=== PATIENT | male | born 1945 | race Caucasian/White ===

== ENCOUNTER 2020-09-19 08:14 | Emergency (ER) | payer MEDICARE ==
[~2020-09-19] VITALS: Ht 177.8 cm; Wt 99.8 kg
[~2020-09-19 08:14] MED LIST: AMLODIPINE BESYL5 MG PO; ASPIRIN EC81 MG PO; ATIVAN2 MG PO; BABY ASPIRIN81 MG PO; CEPHALEXIN500 MG PO; CIPRO500 MG PO; CLOPIDOGREL75 MG PO; COREG25 MG PO; HUMIRA40 MG/0.1 SUB-Q; KEFLEX500 MG PO; LISINOPRIL40 MG PO; LISINOPRIL5 MG PO; METOPROLOL TAR100 MG PO; NORCO 5-325 TA1 EACH PO; PYRIDIUM100 MG PO; SIMVASTATIN40 MG PO; SIMVASTATIN80 MG PO; TOPROL XL200 MG PO; VENLAFAXINE HC150 MG PO; ZYPREXA2.5 MG PO
--- OUTSIDE RECORDS SUMMARY | 2020-09-19 08:16 | XMS ---
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 Benedict has no Care Guidelines for this patient. Abdiaziz VISIT COUNT (12 MO.) 1 LYLE Bolden TOTAL 1 NOTE: Visits indicate total known visits. ED/C VISIT TRACKING (12 MO.) 09/19/2020 08:14 [facility] [place] TYPE: Emergency COMPLAINT: - SOB INPATIENT VISIT TRACKING (12 MO.) No inpatient visits to display in this time frame [email or web address]
[2020-09-19] MEDS ORDERED: VENLAFAXINE HCL75 M1 PO (08:20)
[2020-09-19] MEDS ORDERED: HYDROCHLOROTHIA25 MG PO (08:21)
[2020-09-19] MEDS ORDERED: SIMVASTATIN80 MG PO (08:22)
--- NOTE | 2020-09-19 17:46 | EKG ---
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
== END 2020-09-19 10:45 | disposition home or self-care (01) ==
LOC: ED 08:14
DX: J44.9 Chronic obstructive pulmonary disease, unspecified (principal); I10 Essential (primary) hypertension; I25.2 Old myocardial infarction; E78.00 Pure hypercholesterolemia, unspecified; Z87.891 Personal history of nicotine dependence; Z79.899 Other long term (current) drug therapy; Z79.82 Long term (current) use of aspirin; Z20.822 Contact with and (suspected) exposure to COVID-19
CPT/HCPCS: 71045; 80053; 83880; 84484; 85025; 93005; 93010; 94640; 94664; 99285-25; C9803; U0003

== ENCOUNTER 2022-08-19 08:28 | Emergency (ER) | payer MEDICARE ==
[~2022-08-19] VITALS: Ht 177.8 cm; Wt 99.8 kg
[~2022-08-19 08:28] MED LIST changes: +HYDROCHLOROTHIA25 MG PO; +VENLAFAXINE HCL75 M1 PO
[2022-08-19] MEDS ORDERED: AMOX TR-K CLV1 EAC1 PO (11:06)
--- NOTE | 2022-08-19 14:15 | EKG ---
[facility] [address] [facility] [place] [address] Signed Atrial fibrillation with a competing junctional pacemaker Cannot rule out Inferior infarct (cited on or before 10-MAY-2016) Abnormal ECG When compared with ECG of 19-SEP-2020 08:42, Atrial fibrillation has replaced Sinus rhythm Confirmed by DAI SNOWDEN MD ([id number]) on 08/19/2022 2:15:23 PM Electronically Signed By: DAI SNOWDEN MD 08/19/22 1415 PATIENT NAME: CHARITY TRISTAN CHARLENE Electrocardiogram DATE OF : 45 PHYSICIAN: DAI SNOWDEN MD REPORT #: [id number] REPORT IS CONFIDENTIAL AND NOT TO BE RELEASED WITHOUT AUTHORIZATION
== END 2022-08-19 11:20 | disposition home or self-care (01) ==
LOC: ED 08:28
DX: J18.9 Pneumonia, unspecified organism (principal); I25.2 Old myocardial infarction; I10 Essential (primary) hypertension; E78.00 Pure hypercholesterolemia, unspecified; Z20.822 Contact with and (suspected) exposure to COVID-19; Z79.899 Other long term (current) drug therapy; Z79.82 Long term (current) use of aspirin
CPT/HCPCS: 36415; 71045; 80053; 83735; 84484; 85025; 87502; 93005; 93010; 99285-25; U0003

== ENCOUNTER 2024-10-27 10:08 | Inpatient (IN) | payer MEDICARE ==
[~2024-10-27] VITALS: Ht 177.8 cm; Wt 110.0 kg
[2024-10-27] VITALS (14 sets, daily range): BP systolic 84–186; BP diastolic 49–170
[~2024-10-27 10:08] MED LIST changes: +ADULT ASPIRIN R81 MG PO; +AMOX TR-K CLV1 EAC1 PO; -ASPIRIN EC81 MG PO; +WARFARIN SODIUM5 MG PO
[2024-10-27] MEDS ORDERED: NOREPINEPHRINE BITARTRATE 250 ML IV SCH (10:30)
[2024-10-27] MEDS ORDERED: SODIUM CHLORIDE 0.9% 1,000 ML IV ONE ×3 (10:30→12:00)
[2024-10-27 10:43] LABS: BASOPHILS 0.2 % (0-2); HEMATOCRIT 45.8 % (35.0-50.0); HEMOGLOBIN 15.8 g/dL (12.0-18.0); LYMPHOCYTES 27.7 % (24-44); MCH 32.2 (27-36); MCHC 34.5 g/dl (30-36); MCV 93.5 fl (81-99); MONOCYTES 10.4 % (0-12); NEUTROPHILS 61.7 % (39-80); PLATELET COUNT 193 K/uL (140-440); RDW 14.7 (10.5-15.0)
[2024-10-27 11:00] LABS: PH, VENOUS 7.108 (7.31-7.41)
[2024-10-27 11:04] LABS: LACTIC ACID, BLOOD 1.1 mmol/L (0.4-2.0)
[2024-10-27 11:09] LABS: CORONAVIRUS COVID-19 AG NEGATIVE (NEGATIVE); INFLUENZA A AG NEGATIVE (NEGATIVE); INFLUENZA B AG NEGATIVE (NEGATIVE)
[2024-10-27 11:18] LABS: ALBUMIN 3.1 g/dL (3.4-5.0); ALBUMIN/GLOBULIN RATIO 0.84 (1.1-2.4); BILIRUBIN, TOTAL 0.2 mg/dL (0.2-1.0); BUN/CREATININE RATIO 18.86 (6.0-28.6); CALCIUM 7.5 mg/dL (8.5-10.1); CREATININE, SERUM 6.52 mg/dL (0.70-1.30); PROTEIN, TOTAL 6.8 g/dL (6.4-8.2)
[2024-10-27 11:40] LABS: ANION GAP 22.9 (7-21)
[2024-10-27 11:42] LABS: INR 3.75 (0.80-1.30); PROTIME 37.4 Sec (11.2-14.2)
[2024-10-27 11:42] LABS: POTASSIUM 6.9 mmol/L (3.5-5.1)
[2024-10-27] MEDS ORDERED: LIDOCAINE 2% VISCOUS 6 ML SYR TOP ONE (11:45)
[2024-10-27 11:46] LABS: BILIRUBIN, URINE NEGATIVE (negative); BLOOD/HGB, URINE TRACE-I (Negative); KETONE, URINE NEGATIVE (Negative); LEUK ESTERASE, URINE NEGATIVE (negative); NITRITE, URINE NEGATIVE (negative); PH, URINE 5.5 (5-7)
[2024-10-27 11:54] LABS: BACTERIA, URINE NONE SEEN /hpf (negative); CASTS, URINE HYALINE 1+ \\lpf; CRYSTALS, URINE NONE SEEN (0-1+); EPITHELIAL CELLS, URINE SQUAMOUS 1+ /lpf (0-1+)
--- NOTE | 2024-10-27 11:55 | EKG ---
[facility] [address] [facility] [place] [address] Signed Atrial fibrillation Low voltage QRS Nonspecific intraventricular conduction delay Abnormal ECG No previous ECGs available Confirmed by Maria G Louis MD ([id number]) on 10/27/2024 11:55:27 AM Electronically Signed By: MARIA G LOUIS MD 10/27/24 1155 PATIENT NAME: CHARITY TRISTAN Electrocardiogram DATE OF : 45 PHYSICIAN: MARIA G LOUIS MD REPORT #: [id number] REPORT IS CONFIDENTIAL AND NOT TO BE RELEASED WITHOUT AUTHORIZATION
[2024-10-27 11:56] LABS: COLLECTION TYPE, URINE CLEAN CATCH; REFLEX CULTURE, URINE No (No)
[2024-10-27] MEDS ORDERED: DEXTROSE 50% 50 ML SYR IV ONE (12:00)
[2024-10-27] MEDS ORDERED: SODIUM BICARBONATE 50 MEQ/50 ML SYR IV ONE (12:00)
[2024-10-27] MEDS ORDERED: CALCIUM CHLORIDE 1,000 MG/10 ML SYR IV ONE (12:00)
[2024-10-27] MEDS ORDERED: SODIUM ZIRCONIUM CYCLOSILICATE 10 GM PACK PO ONE (12:00)
[2024-10-27] MEDS ORDERED: ALBUTEROL SULFATE 0.5% 2.5 MG/0.5 ML VIAL INH ONE (12:00)
[2024-10-27] MEDS ORDERED: Insulin Regular, Human 100 UNIT/ML ML IV ONE (12:00)
[2024-10-27 13:36] LABS: ANION GAP 20.9 (7-21); BUN/CREATININE RATIO 20.13 (6.0-28.6); CALCIUM 8.2 mg/dL (8.5-10.1); CREATININE, SERUM 5.86 mg/dL (0.70-1.30); POTASSIUM 4.9 mmol/L (3.5-5.1)
[2024-10-27] MEDS ORDERED: PROCHLORPERAZINE EDISYLATE 10 MG/2 ML VIAL IV PRN (16:15)
[2024-10-27] MEDS ORDERED: LACTATED RINGER'S 1,000 ML IV SCH (16:15)
[2024-10-27] MEDS ORDERED: ACETAMINOPHEN 325 MG TAB PO PRN (16:15)
[2024-10-27] MEDS ORDERED: ondansetron HCL 4 MG/2 ML VIAL IV PRN (16:15)
--- NOTE | 2024-10-27 17:30 | NUR ---
PT ARRIVES TO FLOOR VIA STRETCHER BY ED RN - PT DROWSY BUT RESPONSIVE. SLIDER TRANSFER R/T PRFOUND WEAKNESS. 4L 02 VIA NC ON ARRIVAL, NO HOME O2 USE REPORTED BY PT OR FAMILY. AFIB RYTHEM ON POWERPLANT OPERATOR, RATES 60-70'S - PT STATES HE TOOK ALL HIS USUAL HOME MEDS INCLUDING RATE CONTROLS WHILE SICK AND MOST RECENTLY THIS AM. EQUAL STRENGTH BILATERALLY BUT WEAK, PT STATES WEAKNESS IS HIS BIGGEST COMPLAINT AT THIS TIME. DENIES PAIN ALTHOUGH HE APPEARS UNCOMFORTABLE IN BED. SKIN ASSESSMENT NEGATIVE OF ANY CONCERN FOR BREAKDOWN. GRANDSONS AT BEDSIDE REPORT PT IS VERY ACTIVE AND INDEPENDENT AT BASELINE AND WAS WORKING ON CARS 3 WEEKS AGO. IV SITES PATENT X2, LEVOPHED AT 7 MCG/MIN INTO 18G UPPER ARM IV SITE. VEGA CATH DRAINING BLOOD TINGED URINE, LIKELY FROM VEGA INSERT WITH ELARGED PROSTATE AND ELEVATED INR.
[2024-10-27] MEDS ORDERED: ALBUTEROL SULFATE 0.083% 3 ML VIAL INH PRN (17:45)
--- NOTE | 2024-10-27 18:23 | NUR ---
PT RESTING IN BED AND EATING PUDDING - ARMS SHAKY, GRANDSON STATES IS NOT BASELINE. SIPS OF WATER WITHOUT DIFFICULTY. LEVOPHED TITRATION DOWN IN PROGRESS.
[2024-10-27 18:42] LABS: PH, VENOUS 7.194 (7.31-7.41)
--- NOTE | 2024-10-27 18:50 | NUR ---
PT REPOSISTIONED TO RIGHT SIDE IN BED WITH PILLOWS PER REQUEST. BP CUFF ON LEFT ARM R/T IV SITE IN RIGHT UPPER ARM. MONITORING BP READINGS WITH CAUTION WHILE IN THIS POSISTION. CALL LIGHT IN REACH.
[2024-10-27 18:55] LABS: ANION GAP 24.4 (7-21); BUN/CREATININE RATIO 21.11 (6.0-28.6); CALCIUM 8.3 mg/dL (8.5-10.1); CREATININE, SERUM 5.21 mg/dL (0.70-1.30); POTASSIUM 5.4 mmol/L (3.5-5.1)
--- NOTE | 2024-10-27 19:30 | NUR ---
handoff report received from day shift rn. patient resting in bed with eyes closed. patient states he has no needs at this time. no distress noted. call light in reach
[2024-10-27] MEDS ORDERED: ALBUTEROL/IPRATROPIUM 3 ML NEB INH SCH (20:00)
[2024-10-27] MEDS ORDERED: LACTATED RINGER'S 1,000 ML IV ONE (20:15)
[2024-10-27] MEDS ORDERED: Calcium Gluconate in NS 1,000 MG/50 ML BAG IV ONE ×2 (20:15→23:45)
--- NOTE | 2024-10-27 20:40 | NUR ---
PATIENT ASSESSMENT COMPLETE. PATIENT ALERT AND ORIENTED X4. PATIENT DROWSY, BUT EASILY AWAKENS WITH VERBAL STIMULI. PATIENT DENIES ANY PAIN OR NAUSEA AT THIS TIME. LEVOPHED GTT INFUSING PER MEDICATION FLOW SHEET. IVF INFUSING PER EMAR. PATIENT IV SITES WNL. PATIENT VEGA INTACT. PATIENT ON 3L NC, SPO2 96%. PATIENT HAS OCCASIONAL LOOSE COUGH. PATIENT IN AFIB, HEART RATE 70-80'S. PATIENT VITAL SIGNS STABLE. PATIENT HAS NO NEEDS AT THIS TIME. CALL LIGHT IN REACH.
--- NOTE | 2024-10-27 20:47 | NUR ---
ADDED HUMIDIFICATION TO ISABELL'S NC. STARTED HIM ON A CORNET. ISABELL WAS ABLE TO COMPLETE THE CORNET LEVEL 5 W/O DIFFICULTY. ISABELL STATED THAT HE HAD A 40+ YEAR SMOKING HISTORY THAT HE QUIT IN 2000. HE SMOKED APPROXIMATELY 1 PACK A DAY.
[2024-10-27] MEDS ORDERED: MELATONIN 3 MG TAB PO PRN (21:00)
--- NOTE | 2024-10-27 21:30 | NUR ---
patient up to bedside commode with two person SBA. patient unsteady and weak on feet. patient passes gas, no BM. patient back to bed. warm blanket provided. castaneda care done. patient castaneda draining blood tinged urine. patient has no further needs at this time. call light in reach.
[2024-10-27 23:18] LABS: ANION GAP 21.2 (7-21); BUN/CREATININE RATIO 22.69 (6.0-28.6); CALCIUM 8.5 mg/dL (8.5-10.1); CREATININE, SERUM 4.45 mg/dL (0.70-1.30); POTASSIUM 5.2 mmol/L (3.5-5.1)
--- NOTE | 2024-10-27 23:20 | NUR ---
LEVOPHED GTT TITRATED UP PER MEDICATION FLOWSHEET TO MAINTAIN A MAP >65. PATIENT HAS IVF INFUSING PER EMAR. IV SITES WNL. PATIENT CONTINUES TO HAVE LOOSE COUGH. PATIENT REMAINS ON 3L NC, SPO2 95%. PATIENT HAS CALL LIGHT IN REACH.
--- NOTE | 2024-10-27 23:40 | NUR ---
SPOKE WITH DOCTOR PAIGE VIA PHONE. PROVIDED UPDATE. NEW ORDERS RECEIVED PER EMAR.
[2024-10-28] VITALS (49 sets, daily range): BP systolic 75–129; BP diastolic 45–115
--- NOTE | 2024-10-28 01:55 | NUR ---
LEVOPHED GTT TITRATED PER MEDICATION FLOW SHEET. PATIENT IVF INFUSING PER EMAR. IV SITES WNL. PATIENT REMAINS ON 3L NC, SPO2 97%. PATIENT REMAINS IN AFIB, HEART RATE 60-70'S. PATIENT VEGA CATH INTACT. PATIENT HAS NO NEEDS AT THIS TIME. CALL LIGHT IN REACH.
--- NOTE | 2024-10-28 02:44 | NUR ---
PATIENT RESTING IN BED WITH EYES CLOSED, RR 18. PATIENT REMAINS ON 3L NC, SPO2 96%. PATIENT REMAINS ON LEVOPHED GTT AT 2 MCG/MIN. VITAL SIGNS STABLE. NO DISTRES NOTED. CALL LIGHT IN REACH.
--- NOTE | 2024-10-28 04:30 | NUR ---
PATIENT USED CALL LIGHT STATING HE IS COLD. WARM BLANKET PROVIDED. PATIENT HAS NO FURTHER NEEDS AT THIS TIME. CALL LIGHT IN REACH.
[2024-10-28 05:21] LABS: BASOPHILS 0.2 % (0-2); EOSINOPHILS 0.1 % (0-6); HEMATOCRIT 42.7 % (35.0-50.0); HEMOGLOBIN 14.5 g/dL (12.0-18.0); LYMPHOCYTES 22.7 % (24-44); MCH 31.9 (27-36); MCHC 33.9 g/dl (30-36); MCV 93.9 fl (81-99); PLATELET COUNT 141 K/uL (140-440); RBC 4.55 M/ul (4.3-5.7); RDW 14.6 (10.5-15.0)
[2024-10-28 05:35] LABS: PROTIME 48.4 Sec (11.2-14.2)
[2024-10-28 05:38] LABS: INR 5.19 (0.80-1.30)
[2024-10-28 05:39] LABS: ALBUMIN 2.8 g/dL (3.4-5.0); ALBUMIN/GLOBULIN RATIO 0.76 (1.1-2.4); ANION GAP 18.1 (7-21); BILIRUBIN, TOTAL 0.3 mg/dL (0.2-1.0); BUN/CREATININE RATIO 23.11 (6.0-28.6); CALCIUM 8.4 mg/dL (8.5-10.1); CREATININE, SERUM 3.85 mg/dL (0.70-1.30); MAGNESIUM 1.8 mg/dL (1.8-2.4); PHOSPHORUS, INORGANIC 5.8 mg/dL (2.5-4.9); POTASSIUM 5.1 mmol/L (3.5-5.1); PROTEIN, TOTAL 6.5 g/dL (6.4-8.2)
--- NOTE | 2024-10-28 06:00 | NUR ---
SPOKE WITH DR PAIGE VIA PHONE AND PROVIDED UPDATE. NO NEW ORDERS AT THIS TIME.
--- NOTE | 2024-10-28 06:32 | NUR ---
PATIENT REMAINS ON LEVOPHED GTT AT 2 MCG/MIN. PATIENT ON 3L NC, SPO2 96%. PATIENT GIVEN NEB TX PER RT. PATIENT VEGA CATH INTACT, CONTINUES TO DRAIN RED/BLOOD TINGED URINE. VEGA CARE DONE. PATIENT IVF INFUSING PER EMAR. IV SITE WNL. MORE ICE WATER PROVIDED PER PATIENT REQUEST. PATIENT HAS NO FURTHER NEEDS AT THIS TIME. CALL LIGHT IN REACH.
--- NOTE | 2024-10-28 07:45 | NUR ---
PT REPOSISTIONED UP IN BED DURING BEDSIDE REPORT - PT AA0 X4, DOWSY AND C/O BEING "TIRED" BUT WAKES EASILY. LEVOPHED RUNNING INTO UPPER RIGHT IV SITE 18G, SITE WNL, RATE CURRENTLY AT 2MCG/MIN. PT DENIES NEEDS AT THIS TIME, CALL LIGHT IN REACH.
[2024-10-28 08:27] LABS: INFLUENZA B NAA NEGATIVE (NEGATIVE); RESPIRATORY SYNCYTIAL VIR NAA NEGATIVE (NEGATIVE)
--- NOTE | 2024-10-28 08:51 | NUR ---
0900 labs drawn from left hand iv site by this rn and sent to lab. pt resting in bed awake and watching tv, denies needs at this time.
[2024-10-28 08:52] LABS: PH, VENOUS 7.271 (7.31-7.41)
[2024-10-28] MEDS ORDERED: VENLAFAXINE HCL 75 MG CAPCR PO SCH (09:00)
[2024-10-28] MEDS ORDERED: OSELTAMIVIR PHOSPHATE 30 MG CAP PO SCH (09:00)
[2024-10-28] MEDS ORDERED: ASPIRIN 81 MG TABEC PO SCH (09:00)
[2024-10-28 09:30] LABS: BUN/CREATININE RATIO 24.53 (6.0-28.6); CALCIUM 8.4 mg/dL (8.5-10.1); CREATININE, SERUM 3.22 mg/dL (0.70-1.30)
--- NOTE | 2024-10-28 09:30 | NUR ---
PHYSICAL THERAPY IN ROOM TO WORK WITH PT
--- NOTE | 2024-10-28 10:33 | NUR ---
PT REPOSISTIONED TO LEFT SIDE WITH PILLOW. GRANDSON AT BEDSIDE AND UPDATED ON PT STATUS. PT APPEARS GENERALLY UNCOMFORTABLE IN BED BUT DENIES PAIN - STATES HE IS COMFORTABLE. FLUTTER VALVE USED, SECREATIONS AUDIBLE IN UPPER AIRWAY BUT PT UNABLE TO CLEAR.
--- NOTE | 2024-10-28 11:20 | NUR ---
RN ROUNDING ON PT - RESTING ON BED AND DOZING OFF AND ON BUT WITHOUT FULL SLEEP. GRANDSON AT BEDSIDE AND STATES HE IS WAKING WITH BP CUFF STARTING. PT BP STILL MARGINAL AND LEVOPHED AT 2MCG/MIN. TRIAL TO TURN IT OFF STARTED AT THIS TIME.
[2024-10-28] MEDS ORDERED: PHARMACY RENAL DOSE ADJUSTMENT 1 DOSE MISC PO SCH (12:00)
--- NOTE | 2024-10-28 12:30 | NUR ---
levophed infusion resumed after consequetive low bp with map <65. MD updated on potential need for central line - surgeon consulted.
[2024-10-28] MEDS ORDERED: PHYTONADIONE 2.5 MG/2.5 ML SYR PO ONE (13:00)
[2024-10-28 13:05] LABS: PH, VENOUS 7.33 (7.31-7.41)
[2024-10-28 13:21] LABS: ANION GAP 19.3 (7-21); BUN/CREATININE RATIO 27.17 (6.0-28.6); CALCIUM 8.5 mg/dL (8.5-10.1); CREATININE, SERUM 2.87 mg/dL (0.70-1.30); POTASSIUM 5.3 mmol/L (3.5-5.1)
--- NOTE | 2024-10-28 13:43 | NUR ---
PT CONTINUES TO REST IN BED, DROWSY BUT MORE ALERT WHEN CARES BEING DONE. LEVOPHED AT 5MCG/MIN. CENTRAL LINE PROCEDURE DELAYED AT THIS TIME R/T PTS INR. WILL ADMINISTER VITAMIN K AND REASSESS NEED IN AM. WILL CONTINUE TO ASSESS IV SITE CLOSELY WITH LEVOPHED INFUSION INTO 18G PERIPHERAL UPPER RIGHT ARM SITE. FAMILY UPDATED AT RN STATION ON PT PROGRESS. ALL QUESTIONS ANSWERED.
--- NOTE | 2024-10-28 14:09 | NUR ---
PT DENIES SOB, FLUTTER VALVE USED AND COUGH REMAINS NON PRODUCTIVE BUT LOOSE IN UPPER CHEST. PT DENIES NEEDING REPOSISTIONED, STATES HE IS COMFORTABLE. IV SITE PATENT AND WNL. VITAMIN K ADMINISTERED.
[2024-10-28] MEDS ORDERED: WARFARIN SOD HOLD 1 EA PO SCH (16:00)
[2024-10-28] MEDS ORDERED: WARFARIN PER PHARMACY PROTOCOL PO SCH (16:00)
--- NOTE | 2024-10-28 16:00 | NUR ---
PT ASSISTED UP TO BED SIDE CHAIR PIVOT TRANSFER. PT WEAK, MILDLY IMPULSIVE WITH MOVEMENT, NEEDING LINE/TUBE MANAGMENT/CUEING. PT MORE ALERT THIS AFTERNOON AND WATCHING TV, RECEIVING NEB TREATMENT. FLUTTER VALVE IN USE, CONTINUED EDUCATION REGARDING PULMONARY HYGEINE. PT STATES HE "THINKS" HE IS FEELING BETTER. URINE IN VEGA CATH REMAINS BRIGHT RED, OUTPUT HAS SLOWED BUT QS. LEVOPHED REMAINS AT 5MCG/MIN.
[2024-10-28 16:58] LABS: PH, VENOUS 7.227 (7.31-7.41)
--- NOTE | 2024-10-28 17:02 | NUR ---
PT EATING DINNER UP IN CHAIR - FIRST APPETITE SINCE ADMISSION. LAB IN ROOM TO DRAW 1700 LABS.
[2024-10-28 17:11] LABS: ANION GAP 16.7 (7-21); BUN/CREATININE RATIO 26.37 (6.0-28.6); CALCIUM 8.5 mg/dL (8.5-10.1); CREATININE, SERUM 2.54 mg/dL (0.70-1.30); POTASSIUM 4.7 mmol/L (3.5-5.1)
--- NOTE | 2024-10-28 18:00 | NUR ---
PT ASSISTED BACK TO BED A PIVOT TRANSFER. DYSPNEA ON EXCERTION NOTED, WITHOUT DESATURATION. PT ATE 75% OF DINNER AND DENIES NAUSEA. VEGA CARE COMPLETED. PT DENIES NEEDS AT THIS TIME, CALL LIGHT IN REACH.
--- NOTE | 2024-10-28 20:05 | NUR ---
DEEP SUCTIONED ISABELL VIA EACH NARE. BS WERE CLEAR POST SUCTIONING. ISABELL STATED THAT THE NT SUCTION WAS NOT COMFORTABLE BUT THAT HE CAN BREATH A LITTLE BETTER.
--- NOTE | 2024-10-28 20:20 | NUR ---
SHIFT REPORT RECEIVED. PATIENT RESTING IN BED. RT IN ROOM FOR NEB TREATMENT. PATIENT HAS AUDIBLE UPPDER AIRWAY SECREATIONS. PATIENT AGREED TO LET RT PERFORM NASOPHARYNGEAL SUCTION. PATIENT TOLERATED WELL AND UPPER AIRWAY SOUNDS ARE GREATLY REDUCED.
--- NOTE | 2024-10-28 21:00 | NUR ---
LAB IN FOR BLOOD DRAW. PATIENT PROVIDED PM MEDS FOR SLEEP AND GENERALIZED PAIN. PATIENT REPORTS FEELING TIRED BUT ADMITS HE HASN'T BEEN ABLE TO SLEEP WELL. PATIENT ORIENTED X4. LUNG SOUNDS ARE COARSE THROUGHOUT WITH SOME RHONCI IN RUL; RLL. PATIENT HAS CONGESTED COUGH. ABD SOFT; BOWEL SOUNDS ACTIVE. NO EDEMA NOTED. IV SITE IN RIGHT UPPER ARM IS WNL. REDNESS NOTED IN RIGHT AC FROM PRIOR IV SITE. VEGA CARE DONE. URINE IS DARK RED BUT THIN AND NO CLOTS. VEGA EMPTIED. PATIENT DENIED OTHER NEEDS. CALL LIGHT IN REACH.
[2024-10-28 21:06] LABS: PH, VENOUS 7.322 (7.31-7.41)
[2024-10-28 21:22] LABS: ANION GAP 15.4 (7-21); BUN/CREATININE RATIO 27.98 (6.0-28.6); CALCIUM 8.2 mg/dL (8.5-10.1); CREATININE, SERUM 2.18 mg/dL (0.70-1.30); POTASSIUM 4.4 mmol/L (3.5-5.1)
[2024-10-29] VITALS (25 sets, daily range): BP systolic 89–140; BP diastolic 48–89
--- NOTE | 2024-10-29 | NUR ---
PATIENT APPEARS TO BE RESTFUL IN BED. EYES CLOSED. SNORING NOTED. LUNG SOUNDS ARE COARSE THROUGHOUT. TOLERATING 3L NC. IV SITE WNL; TITRATED LEVO. SEE FLOWSHEET. URINE REMAINS DARK RED IN COLOR; NO CLOTS. LARGE QUANTITY OF OUTPUT NOTED. ALLOWED PATIENT TO REST. CALL LIGHT IN REACH.
--- NOTE | 2024-10-29 00:06 | NUR ---
DUE TO ISABELL'S FLU STATUS, RT IS ADDING 1MG PULMICORT FOR NO MORE THAN 7 DAYS (12 DOSES) TO HELP HIS FLU A+, COPD EXACERBATION LUNGS HEAL. ISABELL IS STILL REFUSING TO USE THE BIPAP, SO RT DISCONTINUED THE BIPAP ORDER. ISABELL DOES USE THE CORNET LEVEL 5 WITHOUT DIFFICULTY AND OFTEN WHEN HE IS AWAKE.
--- NOTE | 2024-10-29 00:35 | NUR ---
PATIENT BP ADEQUATE; TURNED OFF LEVO AT THIS TIME. PATIENT REMAINS RESTING WITH EYES CLOSED. CALL LIGHT IN REACH.
--- NOTE | 2024-10-29 01:45 | NUR ---
PATIENT RESTING WITH EYES CLOSED. VS STABLE. IV SITE WNL. IVF PER ORDER. PATIENT REMAINS OFF PRESSORS. CALL LIGHT IN REACH.
--- NOTE | 2024-10-29 02:26 | NUR ---
PATIENT REQUESTED A WARM BLANKET WHICH WAS PROVIDED. PATIENT REPORTS BEING COMFORTABLE. DENIED OTHER NEEDS. VS STABLE. TOLERATING 3L NC. CALL LIGHT IN REACH.
--- NOTE | 2024-10-29 03:36 | NUR ---
PATIENT ASSISTED TO REPOSITION IN BED. PATIENT DENIED ANY NEEDS OR CONERNS. CALL LIGHT IN REACH. VS STABLE.
[2024-10-29 05:24] LABS: BASOPHILS 0.1 % (0-2); EOSINOPHILS 0.2 % (0-6); HEMATOCRIT 38.1 % (35.0-50.0); HEMOGLOBIN 13.2 g/dL (12.0-18.0); MCH 32.1 (27-36); MCHC 34.6 g/dl (30-36); MCV 92.9 fl (81-99); MONOCYTES 13.4 % (0-12); NEUTROPHILS 62.3 % (39-80); PLATELET COUNT 114 K/uL (140-440); RBC 4.11 M/ul (4.3-5.7); RDW 14.4 (10.5-15.0)
[2024-10-29 05:33] LABS: INR 1.98 (0.80-1.30); PROTIME 22.5 Sec (11.2-14.2)
[2024-10-29 05:40] LABS: ALBUMIN 2.5 g/dL (3.4-5.0); ALBUMIN/GLOBULIN RATIO 0.78 (1.1-2.4); ANION GAP 14.6 (7-21); BILIRUBIN, TOTAL 0.8 mg/dL (0.2-1.0); BUN/CREATININE RATIO 29.11 (6.0-28.6); CALCIUM 8.1 mg/dL (8.5-10.1); CREATININE, SERUM 1.58 mg/dL (0.70-1.30); POTASSIUM 4.6 mmol/L (3.5-5.1); PROTEIN, TOTAL 5.7 g/dL (6.4-8.2)
--- NOTE | 2024-10-29 06:30 | NUR ---
PATIENT REPORTS FEELING ANXIOUS AND REQUEST "SOMETHING TO TAKE THE EDGE OFF". PATIENT DENIED FEELING SOB OR ANY PAIN. DISCUSSED WITH MD. VS STABLE.
--- NOTE | 2024-10-29 06:30 | NUR ---
PATIENT RESTING. EYES CLOSED. VS STABLE. CALL LIGHT IN REACH.
--- NOTE | 2024-10-29 06:47 | NUR ---
PATIENT UP TO THE CHAIR. TRANSFERED WITH 1PA AND FFW. PATIENT IS UNSTEADY AND WEAK. WARM BLANKET PROVIDED. JUICE PROVIDED PER REQUEST. PATIENT REPORTS FEELING LESS ANXIOUS ONCE UP IN CHAIR. LIGHTS ON. PATIENT DOES APPEAR SOB AFTER TRANSFER. REMAINS ON 3L NC. PATIENT RECOVERED AFTER SEVERAL MINS. IV FLUIDS CONTINUED; SITE WNL. FOLET EMPTIED; OUTPUT REMAINS RED WITH SOME CLOTS NOTED. PATIENT DENIED OTHER NEEDS. CALL LIGHT IN HAND.
[2024-10-29] MEDS ORDERED: Calcium Gluconate in NS 1,000 MG/50 ML BAG IV ONE (08:00)
[2024-10-29] MEDS ORDERED: ALBUTEROL/IPRATROPIUM 3 ML NEB INH SCH (08:00)
[2024-10-29] MEDS ORDERED: BUDESONIDE 0.5 MG/2 ML VIAL INH SCH (08:00)
[2024-10-29] MEDS ORDERED: MAGNESIUM SULFATE 2 GM/50 ML BAG IV SCH ×2 (08:00→21:45)
--- NOTE | 2024-10-29 08:00 | NUR ---
PT UP IN BED SIDE CHAIR - AWAKE AND ALERT UPON ENTRY TO ROOM. PT EXPRESSESS 8/10 ANXIETY THAT HE OTHERWISE IS UNABLE TO DESCRIBE. WHEN ASKED HE DENIES CHEST PAIN, NAUSEA, PALPITATIONS. NOTED TO HAVE 5 BEAT RUN OF VTACH ON MONITOR AT 0744 WITH THIS RN IN ROOM, PT DENIED FEELING ANY DIFFERENT AT MOMENT OF RUN. MORE FREQUENT PVC'S NOTED THIS AM WELL. MD NOTIFIED AND AT BEDSIDE TO ASSESS. PT HAS ACUTE COMPLAINT OF SEVERE PAIN IN LEFT GREAT TOE AREA, JOINT NOTED TO BE RED AND HOT TO TOUCH. PT DOES SUPPORT A HISTORY OF GOUT. UPDATED PLAN OF CARE DISCUSSED WITH MD.
[2024-10-29] MEDS ORDERED: OSELTAMIVIR PHOSPHATE 30 MG CAP PO SCH (09:00)
--- NOTE | 2024-10-29 09:00 | NUR ---
PT APPEARS TO BE MORE SOB WITH INCREASED RR WITHOUT CHANGE IN SPO2. USE OF FLUTTER VALVE BUT DOES NOT CLEAR SECREATIONS. PT DENIES WANTING BREAKFAST THIS AM, ORANGE JUICE PROVIDED. TYLENOL ADMINISTERED FOR PAIN. PT CONTINUES TO REPORT ANXIETY AND ASK FOR MEDICAITON. AWAITING ORDERS - MD AWARE. CALL LIGHT IN REACH.
[2024-10-29] MEDS ORDERED: allopurinoL 100 MG TAB PO SCH (09:09)
[2024-10-29] MEDS ORDERED: hydrOXYzine pamoate 25 MG CAP PO PRN (09:15)
--- NOTE | 2024-10-29 09:30 | NUR ---
CXR IN PROGRESS IN ROOM
--- NOTE | 2024-10-29 09:44 | NUR ---
NICOLA MCGRAW UPDATED IN ROOM ON PT STATUS - ALL QUESTIONS ANSWERED.
--- NOTE | 2024-10-29 10:14 | NUR ---
PT BACK TO BED WITH MAX ASSIST R/T PT UNABLE TO BEAR WEIGHT ON LEFT FOOT BECAUSE OF PAIN. SP02 STABLE ON 2L, RR ELEVATED IN 30'S WITH MOVEMENT, 22 AT REST. PRN FOR ANXIETY AND OTHER SCHEDULED MEDS ADMINISTERED. CURTAINS CLOSED AND LIGHTS OFF TO PROMOTE SLEEP AT THIS TIME. CXR RESULTS DISCUSSED WITH , NO FURTHER ORDERS AT THIS TIME. CALL LIGHT IN LAP.
--- NOTE | 2024-10-29 11:00 | NUR ---
PT RESTING IN BED AND VISUALIZED FROM WINDOW AWAKE IN BED WITH EYES OPEN. VS STABLE ON MONITOR. CALL LIGHT IN HAND.
[2024-10-29 11:37] LABS: PH, VENOUS 7.441 (7.31-7.41)
[2024-10-29 11:49] LABS: BUN/CREATININE RATIO 26.86 (6.0-28.6); CALCIUM 8.7 mg/dL (8.5-10.1); CREATININE, SERUM 1.34 mg/dL (0.70-1.30)
--- NOTE | 2024-10-29 12:04 | NUR ---
PT RESTING IN BED WITH HOB ELEVATED - EYES CLOSED, RR 22. CALL LIGHT IN REACH. 1200 ASSESSMENT DEFERED AT THIS TIME TO ALLOW REST.
--- NOTE | 2024-10-29 13:17 | NUR ---
PT RESTING IN BED WITH EYES CLOSED, RR EVEN AND UNLABORED. VS STABLE ON MONITOR. CARES HELD AT THIS TIME TO ALLOW REST. CALL PADDLE IN LAP.
--- NOTE | 2024-10-29 14:00 | NUR ---
PT REMAINS RESTING IN BED WITHOUT DISTRESS, EYES CLOSED AND VS STABLE ON MONITOR. CALL LIGHT PADDLE IN LAP.
--- NOTE | 2024-10-29 15:44 | NUR ---
DECREASED O2 TO 1 LPM.
--- NOTE | 2024-10-29 16:30 | NUR ---
PT WAKES EASILY FOR ASSESSMENT - HE STATES OVERALL HE FEELS BETTER THIS AFTERNOON THAN THIS AM. HE REPORTS HIS FOOT IS LESS PAINFUL. HE HAS BEEN RESTING MORE COMFORTABLY THROUGHOUT DAY AFTER [facility]IST[facility] THIS AM. APPETITE HOWEVER IS STILL POOR AND PT DENIES WANTING TO EAT DINNER. VS AND SPO2 STABLE ON 2L NC.
[2024-10-29] MEDS ORDERED: WARFARIN SOD 5 MG TAB PO ONE (17:15)
--- NOTE | 2024-10-29 18:45 | NUR ---
PT REPOSISTIONED TO RIGHT SIDE IN BED PER REQUEST. FLUTTER VALVE USED BUT NO MUCUS PRODUCED. COUGH AND BREATHING REMAINS WET AND CONGESTED IN THE UPPER CHEST. PT DENIES COMPLAINTS OTHERWISE. CALL LIGHT IN REACH.
--- NOTE | 2024-10-29 19:36 | NUR ---
ISABELL'S BS REMAIN COARSE AND CRACKLE LIKE. HE HAS NO DIFFICULTY WITH THE CORNET LEVEL 5. HE IS CURRENTLY ON A 1L NC W/HUMIDIFICATION. ISABELL REMAINS TACYPNEIC WITH HIS RR.
--- NOTE | 2024-10-29 20:15 | NUR ---
PATIENT RESTING IN BED. REPORTS BEING TIRED. AAOX4. PRN AND SCHEDULED MEDS PROVIDED. PATIENT REPORTS ONGOING ANXIETY AND THAT THE VISTARIL HELPS THIS MORNING. PATIENT DENIED FEELING SOB OR GI UPSET. UPPER AIRWAY CONGESTION NOTED; ENOCURAGED PATIENT TO COUGH SECREATIONS OUT. PATIENT HAS BEEN ABLE TO DO THIS MULTIPLE TIMES TODAY. LUNG SOUNDS ARE COARSE WITH RHONCI AND SOME CRACKLES IN THE RLL. PATIENT TOLERATING 1L NC. ABD IS SOFT, NON TENDER. LEFT GREAT TOE NOTED TO BE RED AND SWOLLEN. PATIENT REPORTS IT FEELS BETTER THEN IT DID THIS AFTERNOON BUT IS WOUND CARE RN. IV FLUIDS CONTINUE PER ORDER; SITE WNL. PATIENT PROVIDED MORE JUICE PER REQUEST. DENIED OTHER NEEDS. CALL LIGHT IN REACH. LIGHTS DIMMED.
[2024-10-29 20:57] LABS: ANION GAP 11.5 (7-21); BUN/CREATININE RATIO 22.31 (6.0-28.6); CALCIUM 8.3 mg/dL (8.5-10.1); CREATININE, SERUM 1.21 mg/dL (0.70-1.30); MAGNESIUM 1.6 mg/dL (1.8-2.4); POTASSIUM 4.5 mmol/L (3.5-5.1)
--- NOTE | 2024-10-29 22:00 | NUR ---
PATIENT REPORTS FEELING HOT. ROOM TEMP DECREASED AND BLANKETS REMOVED. PATIENT DOES FEEL WARM TO TOUCH. ORAL TEMP WNL. COOL WASH CLOTH APPLIED. PATIENT Sp02 86-88% ON 1L NC AT THIS TIME AND RR 25. TITRATED TO 3L NC AND REPLACED PULSE OX STICKER TO ASSURE ACCURATE READING. PATIENT DENIED OTHER NEEDS OR CONCERNS. IV MAG STARTED PER ORDER. IV SITE WNL.
--- NOTE | 2024-10-29 23:57 | NUR ---
PATIENT RESTING IN BED. REPORTS BEING COLD NOW. ORAL TEMP WNL. BLANKETS PROVIDED. PATIENT DENIED CONCERN. VS STABLE. IV SITE WNL; FLUIDS AND MAG REPLACEMENT PER ORDER. CALL LIGHT IN REACH.
[2024-10-30] VITALS (14 sets, daily range): BP systolic 83–125; BP diastolic 49–81
--- NOTE | 2024-10-30 02:00 | NUR ---
PATIENT RESTING IN BED. SNORE NOTED WITH UPPER ARIWAY CONGESTION. TOLERATING 3L NC. VS STABLE. IV SITE WNL; FLUIDS PER ORDER.
--- NOTE | 2024-10-30 04:00 | NUR ---
PATIENT RESTING. EYES CLOSED. VS STABLE. ALLOWED PATIENT TO REST. CALL LIGHT IN REACH.
--- NOTE | 2024-10-30 05:15 | NUR ---
PATIENT TOLERATING 3L NC. LUNG SOUNDS COARSE WITH RHONCI THROUGHOUT. IV FLUIDS PER ORDER; SITE WNL. VEGA EMPTIED; URINE HAS SLIGHT BLOOD TINGE; ORANGE/YELLOW IN COLOR AND SOME SEDIMENT. PATIENT RESTING WITH EYES CLOSED AND SNORING. ALLOWED PATIENT TO REST. CALL LIGHT IN REACH.
[2024-10-30 05:27] LABS: PH, VENOUS 7.437 (7.31-7.41)
[2024-10-30 05:29] LABS: BASOPHILS 0.2 % (0-2); EOSINOPHILS 0.3 % (0-6); HEMATOCRIT 38.3 % (35.0-50.0); LYMPHOCYTES 23.5 % (24-44); MCH 31.7 (27-36); MCHC 33.9 g/dl (30-36); MCV 93.6 fl (81-99); MONOCYTES 12.8 % (0-12); NEUTROPHILS 63.2 % (39-80); PLATELET COUNT 120 K/uL (140-440); RDW 14.2 (10.5-15.0)
[2024-10-30 05:44] LABS: ALBUMIN 2.4 g/dL (3.4-5.0); ALBUMIN/GLOBULIN RATIO 0.71 (1.1-2.4); ANION GAP 11.7 (7-21); BILIRUBIN, TOTAL 0.8 mg/dL (0.2-1.0); BUN/CREATININE RATIO 21.69 (6.0-28.6); CALCIUM 8.4 mg/dL (8.5-10.1); CREATININE, SERUM 1.06 mg/dL (0.70-1.30); POTASSIUM 4.7 mmol/L (3.5-5.1); PROTEIN, TOTAL 5.8 g/dL (6.4-8.2)
[2024-10-30 05:53] LABS: INR 1.41 (0.80-1.30); PROTIME 17.2 Sec (11.2-14.2)
--- NOTE | 2024-10-30 08:30 | NUR ---
PT ASSISTED UP TO BED, PIVOT TRANSFER, SIDE CHAIR TO EAT BREAKFAST - STILL UNSTABLE ON FEET AND PAIN IN LEFT GREAT TOE IS HINDERENCE TO WEIGHT BEARING. DYSPNEA WITH EXCERTION, RR 30, WITHOUT DESATURATION.INCREASED APPETITE THIS AM, EATING BREAKFAST. PT ALSO DRINIKING ENSURE. PT REPORTS PAIN 8/10 AT LEFT GREAT TOE BUT NO WHERE ELSE. DENIES NAUSEA. VEGA CATH DRAINING DARK RED URINE, BLOOD IN TUBING LINE REMAINS. MD IN ROOM ROUNDING - RN PRESENT. UPDATED POC DISCUSSED - PT STATES UNDERSTANDING AND ALL QUESTIONS ANSWERED.
[2024-10-30] MEDS ORDERED: OSELTAMIVIR PHOSPHATE 75 MG CAP PO SCH (09:00)
--- NOTE | 2024-10-30 09:04 | NUR ---
UR CLINICAL REVIEW: 2 MN FOR VERSALUS- PER ROTARY SOIL STABILIZER OPERATOR MEETS INPT FOR DOTTIE/METABOLIC ACIDOSIS MEDICARE INPT 10/27/24 @ 1617 ORDER MATCHES REG NO AUTH REQUIRED PER MEDICARE GUIDELINES DISCHARGE TO HOME WHEN STABLE
[2024-10-30] MEDS ORDERED: allopurinoL 100 MG TAB PO SCH (09:05)
[2024-10-30] MEDS ORDERED: guaiFENesin 600 MG TABCR PO PRN (09:15)
--- NOTE | 2024-10-30 09:15 | NUR ---
PT USES CALL LIGHT TO REQUEST BED SIDE COMMODE FOR BM. PT ASSISTED UP BY PHYSICAL THERPAY AND OCCUPATIONAL THERAPY. SMALL FORMED BM. THERAPY EVAL CONDUCTED. PT DYSPNIC WITH MOVEMENT, ABLE TO SLOW BREATHING WHEN PROMPTED. PO FLUID INTAKE IMPROVED.
--- NOTE | 2024-10-30 10:28 | NUR ---
DAUGHTER IN ROOM TO VISIT - PT IN GREAT SPIRITS VISITING. DAUGHTER UPDATED ON STATUS AND CURRENT PLAN OF CARE. ALL QUESTIONS ANSWERED.
--- NOTE | 2024-10-30 11:02 | NUR ---
ALERT AND ORIENTED WITH OXYGEN IN PLACE, UP IN RECLINER. PATIENT LIVES IN HOUSE WITH . HAS 1 STEP TO GET INTO LIVINGROOM. DOES HAVE 2 STORIES TO HOUSE BUT HE DOES NOT GO UPSTAIRS. HAS NO DME. STATES HE MAY NEED A WALKER. DISCUSSED [facility]. AT THIS POINT IS THINKING HE WILL GET WALKER AT [facility]. WILL REVISIT THIS SUBJECT DURING HIS STAY. PATIENT DRIVES AT BASELINE. HE DENIES ANY FINANCIAL DIFFICULTY. ABLE TO PAY UTILITIES AND OBTAIN FOOD AND MEDICATIONS WITH NO ISSUES. DISCUSSED OXYGEN. DOES NOT USE THIS AT HOME. HIS HAS [employer] BUT HE CAN NOT REMEMBER WHICH COMPANY. DENIES OTHER NEEDS AT THIS TIME.
--- NOTE | 2024-10-30 11:30 | NUR ---
RN ROUNDING ON PT - RESTING IN CHAIR ALERT AND WATCHING TV, IMPROVED APPEARANCE OVERALL. CONTINUES TO USE FLUTTER VALVE AND COUGH IS NOW MORE PRODUCTIVE. PT DENIES WANTING TO EAT LUNCH, ORANGE JUICE PROVIDED PER REQUEST. CALL LIGHT IN REACH.
--- NOTE | 2024-10-30 15:25 | NUR ---
PT RESTING IN CHAIR WATCHING TV. PT DENIES NEEDS. VS STABLE ON MONITOR. CALL LIGHT IN LAP.
[2024-10-30] MEDS ORDERED: WARFARIN SOD 5 MG TAB PO SCH (16:00)
--- NOTE | 2024-10-30 18:24 | NUR ---
PT PROVIDED BED BATH IN CHAIR THIS EVENING AFTER DINNER. PTS APPETITE IMPROVED AT DINNER. PO FLUID INTAKE IMPROVING. PT STILL DYSPNIC WITH ANY ACTIVITY, ON 2L MOST OF DAY. LEFT FOOT REMAINS PAINFUL, DIFFICULT TO STAND ON DURING BATH EVEN WITH WALKER. PT DENIES FEELING NEED TO VOID YET POST VEGA DC. PTS FAMILY IN TO VISIT AND PT IN GOOD SPIRITS. REMAINS UP IN CHAIR THIS EVENING PER REQUEST. CALL LIGHT IN REACH.
--- NOTE | 2024-10-30 19:45 | NUR ---
handoff report received from day shift RN. patient resting in bed with eyes closed, respirations even and unlabored. vital signs stable. no distress noted. call light in reach.
--- NOTE | 2024-10-30 20:50 | NUR ---
patient resting in bed, awakens when this RN enters room. patient alert and oriented x4. patient on 2L NC, tolerating well. patient denies feeling SOB. patient noted to have upper airway congestion, patient able to cough and clear. patient lung sounds coarse througout. patient in chronic afib, heart rate 80-100's. vital signs stable. patient denies any GI upset. patient castaneda taken out today, patient has yet to void, denies feeling need to void. patient endores feeling anxious, and states the vistaril helped him this morning. PRN vistaril given per emar. patient left greater toe remains reddened and swollen, tender to touch. patient endorses pain in this area, PRN tylenol given per emar. patient IVF infusing per emar, IV site WNL. patient provided with juice per request. no further needs at this time. call light in reach.
--- NOTE | 2024-10-30 21:47 | NUR ---
patient bladder scanned for 301ml
--- NOTE | 2024-10-30 22:10 | NUR ---
SPOKE WITH DOCTOR PAIGE VIA PHONE. PROVIDED WITH UPDATE HOW PATIENT HAS NOT YET VOIDED AFTER VEGA DC, AND BLADDER SCAN OF 301ML. NEW ORDER RECEIVED VIA EMAR.
[2024-10-30] MEDS ORDERED: TAMSULOSIN HCL 0.4 MG CAP PO ONE (22:15)
--- NOTE | 2024-10-30 23:30 | NUR ---
patient resting in bed with eyes closed, respirations even and unlabored. patient remains on 2L NC, SPO2 92%. patient has no needs at this time. call light in reach.
[2024-10-31] VITALS (16 sets, daily range): BP systolic 93–149; BP diastolic 59–79
--- NOTE | 2024-10-31 02:15 | NUR ---
PATIENT REPOSITIONED IN BED AND STATES HE IS COMFORTABLE AT THIS TIME. PATIENT REMAINS ON 2L NC, SPO2 93%. PATIENT VITAL SIGNS STABLE. PATIENT UPDATED ON PLAN OF CARE FOR THE MORNING. PATIENT HAS NO NEEDS AT THIS TIME. CALL LIGHT IN REACH.
--- NOTE | 2024-10-31 04:19 | NUR ---
PATIENT USES CALL LIGHT STATING HE FEELS LIKE HE NEEDS TO VOID. PATIENT ASSISTED WITH URINAL, VOIDS 100CC OF BROWN COLORED URINE. PATIENT DENIES PAIN WITH URINATION. PATIENT ENDORSES HEADACHE, PRN TYLENOL GIVEN PER EMAR. PATIENT HAS NO FURTHER NEEDS AT THIS TIME. CALL LIGHT IN REACH.
--- NOTE | 2024-10-31 05:00 | NUR ---
PATIENT USED CALL LIGHT STATING HE NEEDS TO VOID. PATIENT ASSISTED WITH URINAL, VOIDS 50CC. PATIENT DENIES ANY PAIN OR DISCOMFORT WITH URINATION. PATIENT PROVIDED WITH FRESH ICE WATER. NO FURTHER NEEDS AT THIS TIME. CALL LIGHT IN REACH.
[2024-10-31 05:26] LABS: PH, VENOUS 7.494 (7.31-7.41)
[2024-10-31 05:28] LABS: BASOPHILS 0.2 % (0-2); EOSINOPHILS 0.5 % (0-6); LYMPHOCYTES 20.9 % (24-44); MCHC 34.4 g/dl (30-36); MONOCYTES 15.1 % (0-12); NEUTROPHILS 63.3 % (39-80); PLATELET COUNT 116 K/uL (140-440); RBC 3.76 M/ul (4.3-5.7); RDW 14.4 (10.5-15.0)
[2024-10-31 05:44] LABS: ALBUMIN 2.3 g/dL (3.4-5.0); ALBUMIN/GLOBULIN RATIO 0.66 (1.1-2.4); ANION GAP 11.4 (7-21); BUN/CREATININE RATIO 17.58 (6.0-28.6); CREATININE, SERUM 0.91 mg/dL (0.70-1.30); MAGNESIUM 1.5 mg/dL (1.8-2.4); POTASSIUM 4.4 mmol/L (3.5-5.1); PROTEIN, TOTAL 5.8 g/dL (6.4-8.2)
--- NOTE | 2024-10-31 06:06 | NUR ---
PATIENT RIGHT AC IV NOTED TO BE LEAKING. IV TAKEN OUT, TIP INTACT. SITE COVERED WITH GAUZE AND COBAND. PATIENT TOLERATED WELL. NEW 20G IV STARTED IN PATIENT LEFT WRIST. PATIENT TOLERATED WELL. SITE SALINE LOCKED. NO FURTHER NEEDS AT THIS TIME. CALL LIGHT IN REACH.
--- NOTE | 2024-10-31 06:32 | NUR ---
PATIENT USED CALL LIGHT REQUESTING TO GET UP TO COMMODE. PATIENT USED FWW AND X1 SBA. PATIENT HAS SMALL BM AND VOIDS 200CC. PATIENT AMBULATES BACK TO BED. PATIENT STATES HIS LEFT FOOT FEELS BETTER AND IS NOT PAINFUL IT WAS. PATIENT LINEN CHANGED. PATIENT REMAINS ON 2L NC, TOLERATING WELL. PATIENT VITAL SIGNS STABLE. PATIENT HAS NO FURTHER NEEDS AT THIS TIME. CALL LIGHT IN REACH.
[2024-10-31] MEDS ORDERED: MAGNESIUM SULFATE 2 GM/50 ML BAG IV SCH (08:00)
--- NOTE | 2024-10-31 08:15 | NUR ---
Call light answered, patient requests assistance with urinal, 300 dark ro urine out. Up to chair, breakfast tray delivered. Pt states "feeling better" today, has no needs at this time, made plan for day, pt agreeable.
[2024-10-31] MEDS ORDERED: TAMSULOSIN HCL 0.4 MG CAP PO SCH (09:00)
--- NOTE | 2024-10-31 09:00 | NUR ---
Scheduled medications administered and assessment complete. Pt on 1L NC O2 at this time s/p neb tx. VSS. Pt has loose cough with thick mucus noted, PRN mucinex administered. Afebrile, rate controlled in Afib, BP stable. Lungs coarse in upper, dim in bases. Bowel tones active. Pt reports gout to L leg improved- warm, pink, within drawn outline. Pt feels to be improving. No further needs at this time, call light in reach.
--- NOTE | 2024-10-31 10:05 | NUR ---
IV mag infusing. Pt sitting up to chair watching tv. Adjusted BP cuff as patient was holding arm above head. No further needs at this time
--- NOTE | 2024-10-31 10:19 | NUR ---
PATIENT ALERT AND ORIENTED IN RECLINER. DISCUSSED WALKER. STATES HE DOES NOT WANT ASSISTANCE IN OBTAINING A WALKER. STATES HE WILL GET ONE [facility] [place] INFORMED OF [employer] AND GIVEN OPTION TO ORDER WALKER FROM DME. DENIES OPTIONS FOR WALKER, WILL GET ONE FOR HIS SELF. STATES HE HAS NO OTHER CM NEEDS AT THIS TIME. WILL CONTINUE TO CHECK IN WITH PATIENT WHILE HE IS IN FACILITY
--- NOTE | 2024-10-31 11:00 | NUR ---
Pt up to BR with FWW for medium BM and 500ml void- continues to be ro colored, no julee red blood noted. Pt tolerates activity fairly well requiring 1L O2 throughout to maintain sat >90%. Pt using flutter valve. No further needs
--- NOTE | 2024-10-31 12:15 | NUR ---
In room for assessment/vitals, lunch tray delivered. Pt remains afebrile with VSS. Reports no needs at this time.
[2024-10-31 13:18] LABS: INR 1.76 (0.80-1.30); PROTIME 20.5 Sec (11.2-14.2)
--- NOTE | 2024-10-31 13:30 | NUR ---
RT in room, titrates pt to RA, updated regarding activity tolerance and o2 use, RT agreeable to POC
[2024-10-31] MEDS ORDERED: ALBUTEROL/IPRATROPIUM 3 ML NEB INH SCH (14:00)
[2024-10-31] MEDS ORDERED: WARFARIN SOD 5 MG TAB PO SCH (16:00)
--- NOTE | 2024-10-31 18:32 | NUR ---
PATIENT TO MED SURG ROOM 123 AT 1830. PATIENT IS ON ROOM AIR 91%. VSS
--- NOTE | 2024-10-31 19:31 | NUR ---
REPORT RECEIVED FROM DAY SHIFT RN. PATIENT RESTING IN CHAIR. DENIES NEEDS AT THIS TIME. CALL LIGHT IN REACH.
[2024-10-31] MEDS ORDERED: BENZONATATE 100 MG CAP PO PRN (20:00)
[2024-10-31] MEDS ORDERED: BUDESONIDE 0.5 MG/2 ML VIAL INH SCH (20:00)
--- NOTE | 2024-10-31 20:42 | NUR ---
PATIENT RESTING IN BED. VS AND I&Os OBTAINED AND RECORDED. PATIENT TRANSFERRED FROM CHAIR TO BED USING MINIMAL SBA AND FWW. PATIENT ZULLY WELL. ASSESSMENT COMPLETE. IVs FLUSHED WNL. PATIENT ON 1L NC WHILE AMBULATING. PATIENT REMAINS ON 1L NC FOR SLEEP. CPOX IN PLACE. SCHEDULED AND PRN MEDICATION ADMINISTERED. PATIENT EDUCATED TO ROOM AND CALL LIGHT. PATIENT VERBALIZES UNDERSTANDING. BED ALARM ON. CALL LIGHT IN REACH.
--- NOTE | 2024-10-31 22:47 | NUR ---
PATIENT RESTING IN BED ON RIGHT SIDE WITH EYES CLOSED. RESPIRATIONS EVEN AND UNLABORED. CALL LIGHT IN REACH.
[2024-11-01] VITALS (7 sets, daily range): BP systolic 118–143; BP diastolic 64–71
--- NOTE | 2024-11-01 00:04 | NUR ---
PATIENT RESTING ON RIGHT SIDE IN BED WITH EYES CLOSED RESPIRATIONS EVEN AND UNLABORED. CPOX REMAINS IN PLACE. NO NEEDS IDENTIFIED, CALL LIGHT WITHIN REACH.
--- NOTE | 2024-11-01 01:06 | NUR ---
PRN MEDICATION ADMINISTERED TO PATIENT PER REQUEST FOR COUGH. ASSISTED UP TO RESTROOM WITH MINIMAL SBA AND USE OF FWW. RETURNED TO BED WITHOUT DIFFICULTY, NEW GOWN PROVIDED. 1L NC REMAINS IN PLACE, IV FLUIDS INFUSING PER ORDER. NO FURTHER NEEDS IDENTIFIED, CALL LIGHT WITHIN REACH.
--- NOTE | 2024-11-01 02:20 | NUR ---
PATIENT RESTING IN BED ON RIGHT SIDE WITH EYES CLOSED. RESPITATIONS EVEN AND UNLABORED. IV FLUIDS CONTINUING TO INFUSE PER NOV. 1L NC REMAINS IN PLACE, CPOX MONITOR IN PLACE. NO NEEDS IDENTIFIED, CALL LIGHT WITHIN REACH.
--- NOTE | 2024-11-01 04:02 | NUR ---
BED ALARM SOUNDING. pt REPOSITIONING SELF IN BED. SBA WITH FWW TO RESTROOM FOR VOID AND BM. UP TO CHAIR PER pt REQUEST. CHAIR ALARM IN PLACE. IV SITE FLUSHED WNL. IVF INFUSING ORDERED. PERSONAL SUPPLIES IN REACH. CALL LIGHT WITH pt. ICE WATER REFILLED. NO ADDITIONAL REQUESTS. 1L OXYGEN BY NC IN PLACE, SPO2 WNL.
--- NOTE | 2024-11-01 04:19 | NUR ---
PATIENT UP IN CHAIR, WATCHING TV. NO NEEDS IDENTIFIED. CHAIR ALARM IN PLACE, CALL LIGHT WITHIN REACH.
--- NOTE | 2024-11-01 04:47 | NUR ---
IN ROOM TO ANSWER CALL LIGHT, PATIENT REQUESTING MEDICATION FOR DISCOMFORT WITH COUGH. PRN MEDICATIONS ADMINISTERED PER MAR, TEA GIVEN TO PATIENT TO DRINK PER REQUEST. PATIENT REMAINS IN CHAIR, 1L NC REMAINS IN PLACE, CPOX IN PLACE. NO OTHER NEEDS IDENTIFIED. CALL LIGHT WITHIN REACH. CHAIR ALARM ON.
[2024-11-01 05:55] LABS: BASOPHILS 0.3 % (0-2); HEMATOCRIT 33.5 % (35.0-50.0); HEMOGLOBIN 11.6 g/dL (12.0-18.0); LYMPHOCYTES 18.4 % (24-44); MCH 32.4 (27-36); MCHC 34.7 g/dl (30-36); MCV 93.1 fl (81-99); MONOCYTES 10.9 % (0-12); NEUTROPHILS 69.4 % (39-80); PLATELET COUNT 105 K/uL (140-440); RBC 3.59 M/ul (4.3-5.7); RDW 14.3 (10.5-15.0)
[2024-11-01 06:06] LABS: INR 2.03 (0.80-1.30)
[2024-11-01 06:14] LABS: ALBUMIN 2.2 g/dL (3.4-5.0); ALBUMIN/GLOBULIN RATIO 0.55 (1.1-2.4); ANION GAP 10.5 (7-21); BILIRUBIN, TOTAL 1.2 mg/dL (0.2-1.0); BUN/CREATININE RATIO 17.2 (6.0-28.6); CALCIUM 8.2 mg/dL (8.5-10.1); CREATININE, SERUM 0.93 mg/dL (0.70-1.30); MAGNESIUM 1.7 mg/dL (1.8-2.4); POTASSIUM 4.5 mmol/L (3.5-5.1); PROTEIN, TOTAL 6.2 g/dL (6.4-8.2)
--- NOTE | 2024-11-01 06:21 | NUR ---
PATIENT WITH COMPLAINTS OF 9/10 HEADACHE PAIN. PATIENT STATES HE DOES NOT KNOW WHAT IT IS FROM, BUT IT IS THROBBING. WET WASH CLOTH PLACED ON PATIENTS FOREHEAD PER PATIENT REQUEST. MD PAIGE UPDATED ON PATIENT HEADACHE. NEW ORDERS RECEIVED. VERIFIED USING REPEAT BACK METHOD.
[2024-11-01] MEDS ORDERED: OXYCODONE HCL 5 MG TAB PO ONE (06:30)
--- NOTE | 2024-11-01 06:41 | NUR ---
PATIENT SL BY DIANE DEL VALLE AT THIS TIME.
--- NOTE | 2024-11-01 06:48 | NUR ---
PRN PAIN MEDICATION ADMINISTERED PER PATIENT REQUEST FOR 4/10 HEADACHE PAIN. PATIENT STATED "THIS WET WASH CLOTH REALLY BROUGHT THE PAIN FROM A 9/10 DOWN TO A 4/10". NO FURTHER NEEDS. CALL LIGHT IN REACH.
--- NOTE | 2024-11-01 07:06 | NUR ---
VERBAL REPORT RECEIVED FROM DIANE DEL VALLE AND OCTAVIANO Khoury RN. PT OFF UNIT AT MRI AT THIS TIME.
[2024-11-01] MEDS ORDERED: MAGNESIUM SULFATE 2 GM/50 ML BAG IV SCH (07:45)
--- NOTE | 2024-11-01 07:50 | NUR ---
PT RESTS IN RECLINER, WATCHES TV, CALL LIGHT IN REACH NO REQUESTS AT THIS TIME.
--- NOTE | 2024-11-01 10:44 | NUR ---
SPOKE WITH PATIENT REGARDING OUTPATIENT THERAPIES A RECOMMENDATION. STATES HE WILL NOT GO TO OUTPATIENT THERAPY. 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 STATES HE WILL ALSO GET A WALKER ON HIS OWN, IF HE FEELS HE NEEDS ONE. DENIES OTHER CM NEEDS AT THIS TIME. PLAN TO DC HOME WHEN MEDICALLY CLEARED, POTENTIALLY TODAY.
[2024-11-01] MEDS ORDERED: OSELTAMIVIR PHO75 MG PO (11:25)
[2024-11-01] MEDS ORDERED: TAMSULOSIN HCL0.4 MG PO (11:25)
[2024-11-01] MEDS ORDERED: MUCINEX600 MG PO (11:26)
[2024-11-01] MEDS ORDERED: BENZONATATE100 MG PO (11:26)
[2024-11-01] MEDS ORDERED: ALLOPURINOL100 MG PO (11:29)
--- NOTE | 2024-11-01 11:55 | NUR ---
DISCUSSED DISCHARGE INSTRUCTIONS WITH PT, PT VERBALIZES UNDERSTANDING. PT EATS LUNCH, WAITS FOR FAMILY TO BRING HIM CLOTHES AND TRANSPORT HIM HOME.
--- NOTE | 2024-11-01 12:50 | NUR ---
PT'S DAUGHTER ARRIVES WITH CLOTHES. IV REMOVED, TIP INTACT, GAUZE AND COBAN DRESSSING APPLIED TO SITE. PT ASSISTED TO DRESS. DISCHARGE INSTRUCTIONS REVIEWED WITH DAUGHTER, SHE VERBALIZES UNDERSTANDING. PT LEAVES UNIT VIA WHEELCHAIR IN NO APPARENT DISTRESS.
--- NOTE | 2024-11-01 12:51 | NUR ---
IN TO GET PATIENT READY FOR DISCHARGE. WALLET AND WATCH TAKEN OUT OF LOCK BOX IN FRONT OF DAUGHTER AND PATIENT, BOTH LOOKED AND SAID EVERYTHING WAS THERE. BOTH IV'S TAKEN OUT UPON RN REQUEST. BOTH CATHS INTACT AND LOOKED GOOD, RN NOTIFIED.
== END 2024-11-01 12:50 | disposition home or self-care (01) | DRG 683 ==
LOC: ED 10:08 → CCU 16:27 → MS 10-31 18:30
PROVIDERS: Emergency Medicine; ADMIT Family Medicine; ATTEND Family Medicine
PROC: 3E033XZ Introduction of Vasopressor into Peripheral Vein, Percutaneous Approach (ICD-10-PCS; principal; 2024-10-27)
DX: N17.9 Acute kidney failure, unspecified (principal); E87.20 Acidosis, unspecified; I48.20 Chronic atrial fibrillation, unspecified; I47.29 Other ventricular tachycardia; J10.1 Influenza due to other identified influenza virus with other respiratory manifestations; E87.5 Hyperkalemia; R31.9 Hematuria, unspecified; M10.9 Gout, unspecified; E83.42 Hypomagnesemia; I10 Essential (primary) hypertension; E78.00 Pure hypercholesterolemia, unspecified; F32.A Depression, unspecified; I25.2 Old myocardial infarction; Z87.19 Personal history of other diseases of the digestive system; Z98.890 Other specified postprocedural states; Z79.82 Long term (current) use of aspirin; Z79.899 Other long term (current) drug therapy; Z79.01 Long term (current) use of anticoagulants
CPT/HCPCS: 31720; 36415; 51702; 51798; 70450; 71045; 74176; 80048; 80053; 81001; 82800; 82803; 83605; 83735; 83880; 84100; 84484; 84550; 85025; 85610; 87040; 87502; 93005; 93010; 94640; 94644; 94668; 94762; 94799; 97110; 97163; 97166; 97530; 97535; 99285-25; A9270; J1815; J3475; J7030; J7121; Q0177; U0002

== ENCOUNTER 2025-03-19 07:40 | Emergency (ER) | payer MEDICARE ==
[~2025-03-19] VITALS: Ht 177.8 cm; Wt 125.3 kg
[~2025-03-19 07:40] MED LIST changes: +ALLOPURINOL100 MG PO; +BENZONATATE100 MG PO; +MUCINEX600 MG PO; +OSELTAMIVIR PHO75 MG PO; +TAMSULOSIN HCL0.4 MG PO
[2025-03-19] MEDS ORDERED: METOPROLOL SUC200 MG PO (07:58)
[2025-03-19] MEDS ORDERED: FUROSEMIDE 40 MG/4 ML VIAL IV ONE (08:00)
[2025-03-19 08:06] LABS: BASOPHILS 0.4 % (0.2-1.2); EOSINOPHILS 1.6 % (0.8-7.0); LYMPHOCYTES 31.0 % (21.8-53.1); MCH 29.7 PG (25.7-32.2); MCHC 32.1 g/dL (32.3-36.5); MCV 92.3 fL (79.0-92.2); MONOCYTES 9.2 % (5.3-12.2); NEUTROPHILS 57.4 % (34.0-67.9); RBC 5.09 M/uL (4.63-6.08)
[2025-03-19 08:18] LABS: INR 3.22 (0.80-1.30); PROTIME 31.9 Sec (11.2-14.2)
[2025-03-19 08:30] LABS: ALT (SGPT) 20.0 U/L (14-59); AST (SGOT) 30.0 U/L (15-37); GLOMERULAR FILTRATION RATE,EST 52.0 mL/min (>60); PROTEIN, TOTAL 6.8 g/dL (6.4-8.2); UREA NITROGEN 12.0 mg/dL (7-18)
[2025-03-19] MEDS ORDERED: KLOR-CON 1010 MEQ PO (08:51)
[2025-03-19] MEDS ORDERED: LASIX40 MG PO (08:51)
[2025-03-19 09:26] VITALS: BP 156/108
--- NOTE | 2025-03-20 10:50 | EKG ---
[facility] [address] [facility] [address] [place] [address] Signed Atrial fibrillation with premature ventricular or aberrantly conducted complexes Nonspecific ST and T wave abnormality Abnormal ECG When compared with ECG of 27-OCT-2024 10:10, QRS duration has decreased Non-specific change in ST segment in Anterior leads Nonspecific T wave abnormality now evident in Anterolateral leads QT has shortened Confirmed by Gordo Tripathi DO ([id number]) on 03/20/2025 10:50:26 AM Electronically Signed By: GORDO TRIPATHI DO 03/20/25 1050 PATIENT NAME: CHARITY TRISTAN Electrocardiogram DATE OF : 45 PHYSICIAN: GORDO TRIPATHI DO REPORT #: [id number] REPORT IS CONFIDENTIAL AND NOT TO BE RELEASED WITHOUT AUTHORIZATION
== END 2025-03-19 09:10 | disposition home or self-care (01) ==
LOC: ED 07:40
PROVIDERS: Emergency Medicine
DX: I11.0 Hypertensive heart disease with heart failure (principal); I50.9 Heart failure, unspecified; I25.2 Old myocardial infarction; E78.00 Pure hypercholesterolemia, unspecified; Z79.899 Other long term (current) drug therapy
CPT/HCPCS: 36415; 71045; 80053; 83880; 84484; 85025; 85610; 93005; 93010; 96374; 99284-25; J1938